=== PATIENT | female | born 1940 | race Caucasian/White ===

== ENCOUNTER 2016-09-05 22:25 | Emergency (ER) | payer OTHER ==
[2016-09-05] MEDS ORDERED: ASPIRIN PO STA (22:47)
[2016-09-05 23:05] LABS: MANUAL DIFF NEEDED? NO
[2016-09-05 23:10] LABS: BASO% 0.4 % (0.0-0.8); EOS# 0.19 X1000 (0.0-0.7); EOS% 2.4 % (0.0-10.0); HEMATOCRIT 38.4 % (37.0-47.0); HEMOGLOBIN 12.1 g/dL (12.0-16.0); IMM GRAN# 0.01 X1000 (0.0-0.04); IMM GRAN% 0.1 % (0.0-0.5); LYMPH% 12.4 % (20.5-51.1); MCH 29.2 PG (27-31); MCHC 31.5 g/dL (33-37); MCV 92.8 FL (81-99); MONO# 0.62 X1000 (0.11-0.59); MONO% 7.7 % (1.7-9.3); MPV 11.4 FL (7.4-10.4); PLT 145 X1000 (130-400); RBC 4.14 XMIL (4.2-5.4)
[2016-09-05 23:22] LABS: INR 1.11 (0.86-1.15); PROTIME 14.6 Seconds (12.1-15.5)
[2016-09-05 23:23] LABS: PTT PL 38.5 Seconds (22.6-43.9)
--- NOTE | 2016-09-05 23:24 | PROVIDER DOCUMENTATION ---
HPI-Respiratory General - General Chief Complaint: Shortness of Breath Stated Complaint: SOB/WEAKNESS Time Seen by Provider: 09/05/16 22:43 Source: patient Allergies/Adverse Reactions: Patient Allergies Allergy/AdvReac Type Severity Reaction Status Date / Time No Known Allergies Allergy Verified 09/05/16 23:05 Home Medications: Home Medication List Medication Instructions Recorded Confirmed Last Taken Type Albuterol 2.5MG/Ipratrop 0.5MG 3 ml INH RTTID #100 neb 11/15/13 03/24/14 Rx [Duoneb] Carvedilol [Coreg] 12.5 mg PO BID 01/15/14 03/24/14 03/24/14 History Celecoxib [Celebrex] 100 mg PO DAILY 01/15/14 03/24/14 03/24/14 History Furosemide [Lasix] 40 mg PO DAILY 01/15/14 03/24/14 03/24/14 History Spironolactone [Aldactone] 25 mg PO DAILY 01/15/14 03/24/14 03/24/14 History ROSUVAstatin [Crestor] 10 mg PO DAILY 02/11/14 03/24/14 03/24/14 History Warfarin Sodium [Coumadin] 2.5 mg PO DIRECTED 02/11/14 03/24/14 03/24/14 History Warfarin Sodium [Coumadin] 5 mg PO DIRECTED 02/11/14 03/24/14 03/23/14 History Hydrocodone/APAP 5 mg/325 mg 1 - 2 tab PO Q6H PRN PRN #18 tablet 02/12/1403/22/14 Rx [[place]-5] Amoxicillin 875 mg PO BID #20 tablet 03/20/16 Unknown Rx Hydrocodone/Homatropine [Hydromet] 1 tsp PO Q4-6H PRN PRN #4 oz 03/20/16 Unknown Rx Albuterol Sulfate [Albuterol 8.5 gm IH Q4-6H PRN PRN #1 09/05/16 Unknown Rx Sulfate Hfa] hfa.[email or web address] Azithromycin [Zithromax Z-Tony] 250 mg PO DIRECTED #1 pkg 09/05/16 Unknown Rx - History of Present Illness-Resp Quality of Pain: reports: aching Severity in ED: reports: mild Onset/Duration: reports: 24 hours ago Timing: reports: still present Exposure: reports: unknown cause Cough Quality/Degree: reports: no cough Episode Frequency: chronic episodes Current Respiratory Medication Therapy: Initiated see nurses note Modifying Factors: improves with: exertion, albuterol inhaler, albuterol nebulizer, lying down, oxygen, rest, sitting upright Associated Symptoms: reports: shortness of breath, short of breath. denies: chest pain/soreness, cough, fever/chills, flu-like symptoms, nasal congestion, nasal drainage, sore throat, wheezing Similar Symptoms Previously?: Yes Recently seen or treated by another doctor?: No Review of Systems - Adult - REVIEW OF SYSTEMS - ADULT Constitutional: denies: chills, fever, fatique Ears, Nose, Mouth & Throat: denies: ear pain, sinus problem, throat pain Cardiovascular: denies: chest pain, irregular heart rate, palpitations Respiratory: reports: shortness of breath. denies: cough, wheezing Gastrointestinal: denies: abdominal pain, diarrhea, nausea, vomiting Genitourinary: denies: dysuria, flank pain, hematuria Musculoskeletal: denies: back pain, muscle aches, neck pain Integumentary: denies: hives, itching, rash All Other Systems: Reviewed and Negative Past History - Adult - PAST MEDICAL HISTORY-ADULT Review of Records: reports: Old Records Reviewed, Nursing Assessment Review Cardiovascular: reports: CHF, HTN, heart valve problem, hyperlipidemia, pacemaker Respiratory: denies: asthma, COPD Endocrine/Immune: denies: Diabetes, thyroid disorder - PRIOR SURGERIES/PROCEDURES Surgical/Procedure History: reports: appendectomy, CABG, other (vein surgery) - PRIOR HOSPITALIZATIONS Prior Hospitalizations: reports: for other non-related - IMMUNIZATION STATUS Childhood Immunizations: See Nurse Assessment Flu Vaccine: See Nurse Assessment - FAMILY HISTORY Family History: reviewed, not pertinent - SOCIAL HISTORY Smoking: denies Substance Use: alcohol Alcohol Use Frequency: occasionally Number of drinks per typical drinking period:: 2 drinks Living Situation: family Physical Exam-General - PHYSICAL EXAM-ADULT Initial Vital Signs Reviewed: Yes - CONSTITUTIONAL General Appearance: appears well, alert, mild distress - HEAD, EARS, NOSE, MOUTH & THROAT HENMT: normocephalic/atraumatic, moist mucous membranes, normal ENT inspection, TMs normal, pharynx normal - NECK Neck: non-tender, full range of motion, supple - RESPIRATORY Respiratory: chest non-tender, no pleuratic chest pain, no respiratory distress , no accessory muscle use - CARDIOVASCULAR Cardiovascular: normal peripheral pulses, regular rate, rhythm, no edema, no gallop, no JVD, no murmur - GASTROINTESTINAL (ABDOMEN) Abdominal Exam: normal bowel sounds, non tender, soft, no organomegaly, no pulsatile mass, abdominal bruit - MUSCULOSKELETAL Extremity: normal range of motion, non-tender, normal gait, normal inspection, no pedal edema, no calf tenderness, normal capillary refill - SKIN Integumentary: normal color, normal turgor, warm/dry - PSYCHIATRIC Psych/Mental Status: normal mood/affect, normal thought content, normal thought process, oriented x 3 Progress - PLAN OF CARE/RESULTS Progress/Plan/Lab Results: Laboratory Results - last 24 hr 09/05/16 09/05/16 09/05/16 22:55 22:55 22:55 WBC RBC Hgb Hct MCV MCH MCHC RDW Std Deviation Plt Count MPV Immature Gran % (Auto) Neut % (Auto) Lymph % (Auto) [place] % (Auto) Eos % (Auto) Baso % (Auto) Immature Gran # (Auto) Neut # (Auto) Lymph # (Auto) [place] # (Auto) Eos # (Auto) Baso # (Auto) PT INR APTT (Factor Assay) Sodium 138 Potassium 3.7 Chloride 103 Carbon Dioxide 24 L Anion Gap 11 BUN 14 Creatinine 0.7 Estimated GFR/1.73 m2 > 60 BUN/Creatinine Ratio 20 Glucose 166 H Calculated Osmolality 280 Calcium 9.3 Magnesium 2.2 Total Bilirubin 0.80 AST 24 ALT 12 Alkaline Phosphatase 126 H Creatine Kinase 44 Troponin T < 0.010 Hdp-[id number]-[id number] Pept 1531 H Total Protein 7.1 Albumin 4.0 Globulin 3.0 Albumin/Globulin Ratio 1.0 09/05/16 09/05/16 22:55 22:55 WBC 8.04 RBC 4.14 L Hgb 12.1 Hct 38.4 MCV 92.8 MCH 29.2 MCHC 31.5 L RDW Std Deviation 13.7 Plt Count 145 MPV 11.4 H Immature Gran % (Auto) 0.1 Neut % (Auto) 77.0 H Lymph % (Auto) 12.4 L [place] % (Auto) 7.7 Eos % (Auto) 2.4 Baso % (Auto) 0.4 Immature Gran # (Auto) 0.01 Neut # (Auto) 6.19 Lymph # (Auto) 1.00 L [place] # (Auto) 0.62 H Eos # (Auto) 0.19 Baso # (Auto) 0.03 PT 14.6 INR 1.11 APTT (Factor Assay) 38.5 Sodium Potassium Chloride Carbon Dioxide Anion Gap BUN Creatinine Estimated GFR/1.73 m2 BUN/Creatinine Ratio Glucose Calculated Osmolality Calcium Magnesium Total Bilirubin AST ALT Alkaline Phosphatase Creatine Kinase Troponin T [id number]-[id number] Pept Total Protein Albumin Globulin Albumin/Globulin Ratio - XRAY 1 XRAY Study: Chest Impression: Normal Comparison with other Films: no changes Departure - Departure Time of Disposition Order: 00:07 DIAGNOSIS: CHF (congestive heart failure) Qualifiers: Congestive heart failure type: unspecified congestive heart failure type Congestive heart failure chronicity: chronic Qualified Code(s): I50.9 - Heart failure, unspecified Disposition: HOME 01 Certified Medical Emergency: Emergent Condition: Good Additional Instructions: ED Follow Up Instructions: You have been treated by a care provider in the Emergency Department. These instructions are being provided to you so you can have an understanding of how to care for yourself upon discharge. Upon discharge from the Emergency Department, you are responsible for making arrangements for follow-up care by a physician of your choice. Take all prescribed medications as directed. Return to the Emergency Department immediately for any new or worsening symptoms. You may call the Physician Referral phone number at [phone] to obtain a list of Physicians who are taking new patients. Prescriptions: Albuterol Sulfate [Albuterol Sulfate Hfa] 8.5 gm IH Q4-6H PRN PRN #1 [email or web address] PRN Reason: wheezing, short of breath Azithromycin [Zithromax Z-Tony] 250 mg PO DIRECTED #1 pkg Referrals: Pantera Kaur MD [Primary Care Provider] - Instructions: Weakness, Yuce-ts-Otmg, Azithromycin tablets, Heart Failure, Easy -to-Read Attestation - Scribe Verification/Attestation Scribe:: Mason Huizar Acting as Scribe for:: Devon Morales Scribe documention review:: This chart was documented by a scribe and accurately reflects the service the provider performed and the decisions made by the provider.
[2016-09-05 23:27] LABS: AGAP 11; ALKALINE PHOSPHATASE 126 U/L (32-104); BUN 14 mg/dL (8-22); CALCIUM 9.3 mg/dL (8.8-10.2); CHLORIDE 103 mmol/L (98-107); CK PROFILE 44 U/L (24-173); COSMO 280; GOT 24 U/L (10-30); GPT 12 U/L (10-36); MAGNESIUM 2.2 mg/dL (1.5-2.7); POTASSIUM 3.7 mmol/L (3.5-5.1); SODIUM 138 mmol/L (136-145); TCO2 24 mmol/L (25-35); TOTAL PROTEIN 7.1 g/dL (6.3-8.3)
[2016-09-06 00:13] VITALS: BP 165/77
--- NOTE | 2016-09-06 07:48 | Diag Imaging Result Document ---
PROCEDURE NAME: CHEST-2 VIEWS - 09/05/2016 FRONTAL AND LATERAL CHEST, TWO VIEWS: COMPARISON: 03/20/2016. FINDINGS: Sternal wires are present. The patient has a left-sided pacemaker. The heart is enlarged. No pleural effusions. Increased AP diameter to the chest. Prominent central vascular distention. No consolidation. IMPRESSION: Stable chest.
== END 2016-09-06 00:20 | disposition home or self-care (01) ==
LOC: P.ED 22:25
DX: I50.9 Heart failure, unspecified (principal); R06.02 Shortness of breath; I10 Essential (primary) hypertension; E78.5 Hyperlipidemia, unspecified; Z95.0 Presence of cardiac pacemaker; Z95.1 Presence of aortocoronary bypass graft; Z79.899 Other long term (current) drug therapy; Z79.01 Long term (current) use of anticoagulants
CPT/HCPCS: 71020; 80053; 82550; 83735; 83880; 84484; 85025; 85610; 85730; 93005; 99285